=== PATIENT | male | born 1995 | race Caucasian/White ===

== ENCOUNTER 2020-10-12 02:26 | Inpatient (IN) ==
[2020-10-12] MEDS ORDERED: ETOMIDATE 20 MG/10 ML VIAL IV STA (02:36)
[2020-10-12] MEDS ORDERED: VECURONIUM 10 MG VIAL IV STA (02:36)
[2020-10-12] MEDS ORDERED: LACTATED RINGERS 1,000 ML IV STA (02:42)
[2020-10-12] MEDS ORDERED: DIPHTHERIA/TETANUS ADULT VACCINE 0.5 ML SYRINGE IM ONE (02:42)
[2020-10-12] MEDS ORDERED: cefTRIAXone 1,000 MG in SODIUM CHLORIDE 0.9% 100 ML IV STA (02:43)
[2020-10-12 02:48] LABS: Basophils # 0.1 10*3/uL (0.0-0.2); Basophils % 0.3 % (0.0-0.8); Eosinophils # 0.3 10*3/uL (0.0-0.87); Eosinophils % 1.4 % (0.00-10.9); Hematocrit 40.4 VOL% (42.0-52.0); Hemoglobin 13.5 GM/DL (14.0-18.0); Immature Granulocytes % 0.6 %; Immature Granulocytes Absolute 0.11 #; Lymphocytes # 3.9 10*3/uL (1.4-4.0); Lymphocytes % 20.9 % (21.2-54.2); Mean Corpuscular HGB Conc 33.4 GM/DL (32-36); Mean Corpuscular Volume 95.7 FL (87-102); Mean Platelet Volume 10.1 FL (9.6-12.0); Monocytes % 6.8 % (1.7-12.7); Platelet Count 157 T/CUMM (130-400); Red Blood Count 4.22 MC/CUMM (3.8-5.5); White Blood Count 18.7 T/CUMM (4-12)
[2020-10-12 02:57] LABS: INR 1.5; PT Patient Result 16.1 SECS (10.5-12.0)
[2020-10-12 03:14] LABS: Alanine Aminotransferase 33 U/L (16-61); Alkaline Phosphatase 71 U/L (45-117); Amylase 38 U/L (25-115); Aspartate Amino Transferase 66 U/L (0-37); Blood Urea Nitrogen 15 MG/DL (7-18); Calcium 8.1 MG/DL (8.5-10.1); Carbon Dioxide 21 MMOL/L (21-32); Estimated Glom Filtration Rate 143 ML/MIN; Glucose 170 MG/DL (74-106); Osmolality,Calculated 285.3 MOS/KG (273-304); Sodium 141 MMOL/L (136-145)
[2020-10-12 04:27] LABS: Bilirubin,Urine Negative (Negative); Blood, Urine Small mg/dL (Negative); Glucose,Urine (UA) Negative (Negative); Granular Casts,Urine 3 /LPF (0-1); Ketones,Urine Negative (Negative); Mucus,Urine Occasional /LPF (Occasional); Nitrite,Urine Negative (Negative); Protein,Urine 100 MG/DL; RBC,Urine <1 /HPF (0-4); Urine Appearance CLEAR (Clear); Urine Color Yellow (Yellow); Urine Specific Gravity 1.004 (1.001-1.035); Urine Urobilinogen < 2.0 EU/DL (0.2-1.0)
[2020-10-12 04:40] LABS: Barbiturates Screen,Urine Negative (Negative); Benzodiazepines Screen,Urine Negative (Negative); Cannabinoid Screen,Urine Positive (Negative); Opiate Screen,Urine Negative (Negative); Phencyclidine Screen,Urine Negative (Negative)
[2020-10-12] MEDS ORDERED: MORPHINE 4 MG/1 ML VIAL ONE (06:28)
[2020-10-12] MEDS ORDERED: MORPHINE 4 MG/1 ML VIAL IV ONE (06:31)
[2020-10-12 07:32] VITALS: BP 0/0
== END 2020-10-12 06:33 | disposition expired | DRG 84 ==
LOC: EDUNIT# → N.ED 02:26 → N.EDINP 03:10 → N.CC 04:30
PROVIDERS: ADMIT Surgery; ATTEND Surgery